=== PATIENT | female | born 1960 | race Caucasian/White ===

== ENCOUNTER 2023-08-05 23:20 | Emergency (ER) | payer OTHER ==
[~2023-08-05] VITALS: Ht 152.4 cm; Wt 56.7 kg
[2023-08-05 23:26] VITALS: BP_SYST 120; PULSE 82; RESP 18; TEMP 97.4; O2SAT 100
[2023-08-06] MEDS: GASTROGRAFIN 120 ML GT ONE (03:32)
[2023-08-06 09:49] VITALS: BP_SYST 124; PULSE 81; RESP 20; TEMP 97.2; O2SAT 98
== END 2023-08-06 09:35 ==
LOC: SED 23:20
DX: Z43.1 Encounter for attention to gastrostomy (principal); I10 Essential (primary) hypertension; E11.9 Type 2 diabetes mellitus without complications
CPT/HCPCS: 99284; 43762; 74018; Q9963